=== PATIENT | female | born 1965 | race African-American/Black ===

== ENCOUNTER 2021-03-03 19:10 | Emergency (ER) | payer MEDICAID ==
[~2021-03-03] VITALS: Ht 157.5 cm; Wt 75.0 kg
[2021-03-04] MEDS ORDERED: MECLIZINE 25MG TABLET PO ONE (01:45)
[2021-03-04] MEDS ORDERED: MECLIZINE 25MG TABLET PO NR (03:30)
[2021-03-04 03:44] LABS: BASOPHILS % 0.2 % (0.0-2.0); EOSINOPHILS % 0.7 % (0.0-5.0); HEMOGLOBIN. 13.3 g/dL (12.0-16.0); LYMPHOCYTES % 13.6 % (20.0-50.0); MEAN CORPUSCULAR HEMOGLOBIN 28.9 pg (28.0-32.0); MEAN CORPUSCULAR VOLUME 87.1 fL (81.0-99.0); MEAN PLATELET VOLUME 6.9 fl (7.4-10.4); MONOCYTES % 6.5 % (2.0-8.0); PLATELET 451 x1000/uL (130-400); RED BLOOD CELL COUNT 4.59 mill/uL (4.2-5.4); RED CELL DISTRIBUTION WIDTH 13.3 % (11.6-14.6)
[2021-03-04 03:49] LABS: CHLORIDE 104 mEq/L (98-107)
[2021-03-04 04:10] LABS: CLARITY URINE CLEAR (CLEAR); COLOR URINE YELLOW (YELLOW); KETONES URINE TRACE (NEGATIVE); LEUKOCYTE ESTERASE URINE NEGATIVE (NEGATIVE); NITRITE URINE NEGATIVE (NEGATIVE); OCCULT BLOOD URINE NEGATIVE (NEGATIVE); PH URINE 6.5 (4.5-8.0); PROTEIN URINE TRACE (NEGATIVE); SPECIFIC GRAVITY URINE 1.021 (1.005-1.030)
[2021-03-04] MEDS ORDERED: MECL-159 MT (05:01)
[2021-03-04 05:33] VITALS: BP 113/65
== END 2021-03-04 05:30 | disposition home or self-care (01) ==
LOC: ER 19:10
DX: R42 Dizziness and giddiness (principal); H92.01 Otalgia, right ear
CPT/HCPCS: 36415; 80053; 81003; 85025; 99283; J8597